=== PATIENT | female | born 1985 | race African-American/Black ===

== ENCOUNTER 2016-09-25 23:45 | Emergency (ER) | payer SELFPAY ==
[~2016-09-25] VITALS: Ht 167.6 cm; Wt 101.6 kg
[~2016-09-25 23:45] MED LIST: INSU100V32 SQ; NPH,100V11 SQ
[2016-09-25 23:55] VITALS: BP_SYST 132
[2016-09-26 01:05] VITALS: BP_SYST 130
== END 2016-09-26 01:05 | disposition home or self-care (01) ==
LOC: SED 23:45
DX: Z76.0 Encounter for issue of repeat prescription (principal); H53.8 Other visual disturbances; E11.9 Type 2 diabetes mellitus without complications; Z79.4 Long term (current) use of insulin
CPT/HCPCS: 99283